=== PATIENT | female | born 1985 | race Native Hawaiian/Other Pacific Islander ===

== ENCOUNTER 2019-10-01 20:05 | Emergency (ER) | payer OTHER ==
[~2019-10-01] VITALS: Ht 165.1 cm; Wt 99.8 kg
[~2019-10-01 20:05] MED LIST: NOHOMEMEDICATIONS
[2019-10-01] MEDS ORDERED: BUTALB-APAP-CA1 EACH PO (20:31)
[2019-10-01 20:43] VITALS: BP 151/100
== END 2019-10-01 20:42 | disposition home or self-care (01) ==
LOC: ER 20:05
DX: G43.909 Migraine, unspecified, not intractable, without status migrainosus (principal)